=== PATIENT | male | born 1975 | race Native Hawaiian/Other Pacific Islander ===

== ENCOUNTER 2016-10-07 08:50 | Inpatient (IN) | payer MEDICARE ==
[~2016-10-07] VITALS: Ht 177.8 cm; Wt 132.4 kg
[2016-10-07] VITALS (17 sets, daily range): BP systolic 107–172; BP diastolic 55–106; PULSE 60–89; RESP 16–20; O2SAT 95–99
[~2016-10-07 08:50] MED LIST: ALLO300T2 PO; ASPI-973 PO; ATOR20TA65 PO; COLC0.6C3 PO; FENO48TA4 PO; GLIM1TAB PO; HYDR-3740 PO; INDO50CA PO; METF-496 PO; METO25TA99 PO; OMEP20CA11 PO; PROB500T8 PO
--- NOTE | 2016-10-07 09:00 | ED.REPORT ---
HPI-General Illness Date of Service Oct 07, 2016 ED Provider: Danny Espinosa DO 40 y/o male with a hx of HTN,DM, gout and anxiety presents to the ED complaining of left sided chest pain that radiates down his left arm, onset just prior to arrival. The pt was at his stress test appointment when the pain came on so he left for the ED before the test. He experienced the same pain yesterday when he was smoking, which resolved after he took 1 Nitro. He states the pain has been going on for about 2 months. Associated sx include SOB. His sx are exacerbated with exertion. Currently, he rates the pain 7/10 in severity. The pt had a Pharmacologic stress test on 01/18/16, which was found normal. Nursing Notes Stated Complaint: CHEST PAIN Chief Complaint: Chest Pain Nursing Notes Reviewed: Yes Allergies: Coded Allergies: No Known Allergies (Verified Allergy, Unknown, 01/26/15) Scheduled Allopurinol (Allopurinol) 300 Mg Tablet 300 MG PO DAILY Aspirin (Aspirin) 81 Mg Tablet 81 MG PO DAILY Atorvastatin Calcium (Atorvastatin Calcium) 20 Mg Tablet 20 MG PO DAILY Fenofibrate Nanocrystallized (Fenofibrate) 48 Mg Tablet 48 MG PO DAILY Glimepiride (Glimepiride) 1 Mg Tablet 1 MG PO DAILYAC Indomethacin (Indomethacin) 50 Mg Capsule 50 MG PO TID Metformin ER (Metformin ER) 1,000 Mg Tablet 1,000 MG PO DAILY Metoprolol Succinate ER (Metoprolol Succinate ER) 25 Mg Tab.er.24h 25 MG PO DAILY Miscellaneous Medications Colchicine (Colchicine) 0.6 Mg Capsule 0.6 MG PO Probenecid (Probenecid) 500 Mg Tablet 500 MG PO General Time Seen by MD: 08:59 Chief Complaint Chest pain Hx Obtained From: Patient Arrived By: Walk-in Sudden in Onset?: Yes Onset Occurred: Just prior to arrival Location: : Chest Quality: Painful Radiation: : Arm left Severity: Current: Pain level 7 out of 10 Severity: Maximum: Severe Recent Healthcare: No recent doctor visit Similar Sx Previous: Yes Past Medical History Past Medical History Notes: 01/18/16 Stress NM IMPRESSION: 1. Probably normal myocardial perfusion images. There is a small, mild, reversible perfusion defect in the inferior apex, which is nearly resolved on prone imaging, suggesting attenuation artifact. A small, very mild ischemia, however, cannot be entirely excluded. Recommend clinical correlation. 2. Normal left ventricular volume and systolic function. 3. The patient had chest pressure during Lexiscan infusion, which gradually revolved with Aminophyllin. No diagnostic EKG changes for ischemia. 01/20/15 Stress NM IMPRESSION: 1. Probable abnormal myocardial perfusion study. 2. Inferior and apical perfusion defects that improve with resting are consistent with ischemia. However, I cannot exclude that these are not secondary to diaphragmatic attenuation artifact given patient's body habitus. 3. Normal ejection fraction and normal LV wall motion. 4. Nondiagnostic pharmacological stress EKG. 5. Consider cardiology consultation to further evaluate if coronary angiogram is needed. Past Medical History Gout Arthritis Reports: Diabetes mellitus, Hyperlipidemia, Hypertension Past Surgical History none reported Family History Parents had MIs in their 60s and 70s Smoking History Current Every Day Smoker Social History Drug Use: Denies drug use Other Social History: Good social support Ambulatory Status Independent Review of Systems Full Review of Systems Respiratory: Reports: Shortness of breath Cardiovascular: Reports: Chest pain Musculoskeletal: Reports: Extremity pain (left arm) Complete sys rev & neg: except as marked. Physical Exam Vital Signs Vital Signs Date Time Temp Pulse Resp B/P Pulse Ox O2 Delivery O2 Flow Rate FiO2 10/07/16 11:23 36.4 78 18 123/66 95 Room Air 10/07/16 11:08 78 18 123/66 95 Room Air 10/07/16 09:27 85 20 121/55 95 Room Air 10/07/16 08:52 38.5 77 18 172/106 97 Initial VS: Reviewed Head / Eyes: Atraumatic, Normocephalic Neck: Full range of motion Abdomen / GI: Soft, Non-tender Extremities: Vascular intact, Neuro intact, No swelling, No tenderness Skin: Warm, Dry, No cyanosis Neurologic: Alert, Oriented, Nonfocal General/Constitutional: Awake, Alert, Cooperative Distress / Hydration: Positive: Distress mild Appearance / Presentation: Positive: Obese Respiratory / Chest: Atraumatic, Breath sounds NL, No respiratory distress, No wheezing Cardiovascular: Heart rate NL, Regular rhythm, Peripheral circulation NL Interpretation & Diagnostics Lab Results Interpretation Result Diagram: 10/07/16 0913 10/07/16 0913 Test 10/07/16 09:13 White Blood Count 8.6th/mm3 (3.8-10.1) Red Blood Count 5.75mil/mm3 (4.40-5.80) Hemoglobin 16.1g/dL (13.8-17.2) Hematocrit 48.5% (41.0-50.0) Mean Corpuscular Volume 84.3fL (81-100) Mean Corpuscular Hemoglobin 28.0pg (27.0-35.0) Mean Corpuscular Hemoglobin Concent 33.2% (32.0-37.0) Red Cell Distribution Width 14.3% (12.3-15.4) Platelet Count 299bil/L (150-400) Neutrophils (%) (Auto) 49.6% (40-74) Lymphocytes (%) (Auto) 40.7% (14-46) Monocytes (%) (Auto) 5.9% (4-12) Eosinophils (%) (Auto) 2.9% (0-5) Basophils (%) (Auto) 0.7% (0-3) Prothrombin Time 10.0sec (8.1-12.5) Prothromb Time International Ratio 0.94ratio Activated Partial Thromboplast Time 27.4sec (22.8-33.0) Sodium Level 137mEq/L (134-144) Potassium Level 4.2mEq/L (3.5-5.2) Chloride Level 99mEq/L (97-108) Carbon Dioxide Level 21mmol/L (18-29) Blood Urea Nitrogen 18mg/dL (6-20) Creatinine 1.03mg/dL (0.76-1.27) Estimat Glomerular Filtration Rate 86mL/min (>59) Glucose Level 194mg/dL (60-99) Calcium Level 10.0mg/dL (8.5-10.1) Magnesium Level 1.5mg/dL (1.6-2.6) Total Bilirubin 0.3mg/dL (0.0-1.2) Aspartate Amino Transf (AST/SGOT) 34U/L (0-50) Alanine Aminotransferase (ALT/SGPT) 58U/L (0-44) Alkaline Phosphatase 58U/L (25-150) Troponin T 0.020ug/L (0.0-0.011) Total Protein 7.9g/dL (6.4-8.4) Albumin 3.9g/dL (3.4-5.0) ECG Interpretation ECG Interpretation: Normal sinus rhtyhm. Rate 88. Old inferior infarct. Time: 09:12 Interpreted by: ED physician Normal ECG Interpretation: No change from prior ECGs (01/17/16) X-Ray Chest Interpretation Chest Xray Interpretation: IMPRESSION: Stable chest. No acute cardiopulmonary process is evident. Dictated by: Jj Mireles M.D. on 10/07/2016 at 8:55 Approved by: Jj Mireles M.D. on 10/07/2016 at 8:56 View: Portable, 1 view Interpretation / Wet Read by: Interpret - Radiologist Re-Eval/Medical Decision Med Decision/Clinical Course Non-STEMI with chest pain relieved by nitroglycerin elevated troponin, patient will be heparinized and will plan for the patient to go the cardiology to the Chief Sales Officer. Source of Hx: Old records Time of Eval: 09:30 Patient Status: Condition resolved Re-Evaluation/Progress Note: The pt reports no pain to the nurse after administration of 2 Nitroglycerin. Time of Eval: 09:50 Patient Status: Condition resolved Re-Evaluation/Progress Note: Rechecked pt. Discussed ECG. All questions answered. Time of Eval: 10:23 Patient Status: Condition improved Re-Evaluation/Progress Note: Rechecked pt. Discussed labs and informed the pt cardiology will be consulted. Pt understands. All questions answered. Time of Eval: 11:17 Patient Status: Condition improved Re-Evaluation/Progress Note: Rechecked. pt. Discussed lab results, imaging results and plan to admit. Pt understands and agrees with the plan for admission. All questions addressed. Consultation #1: Referral / Consult Name: Manpreet Parker MD Consulted With: Cardiology Call Returned at: 11:05 Solution Professional: Will see patient, Agrees with eval, Agrees with plan Note: Dr. Parker plans to the a cardiac cathterization this afternoon Consultation #2: Referral / Consult Name: Vick Fowler MD Consulted With: Hospitalist Call Returned at: 11:32 Solution Professional: Will see patient, Agrees with eval, Agrees with plan, Accepts admit Counseled Regarding: Diagnosis, Lab results, Need for admission Discharge & Departure Primary Impression: NSTEMI (non-ST elevated myocardial infarction) Disposition: ADMITTED TO HOSPITAL Discharge Condition All VS Reviewed: Yes Condition: Stable Referrals: Riley Cabral (PCP) Crit Care Except Billable Proc Time Spent: 30-74 minutes Services Performed: Patient management by me, Time spent at bedside, Reviewing test results Critical Care Notes: See MDM Scribe Attestation Portions of this note were transcribed by Antonio Pope. I, , personally performed the history, physical exam and medical decision-making;I reviewed and confirmed the accuracy of the information in the transcribed note. Signed by Emerald Naranjo. 10/07/16 12:13 copies to: Riley Cabral Timothy S DO Oct 07, 2016 09:00 Antonio Pope Oct 07, 2016 09:08
[2016-10-07] MEDS ORDERED: Nitroglycerin 2% 1 Gm Ointment TOPICAL ONE ×2 (09:10→17:05)
[2016-10-07] MEDS ORDERED: Ondansetron 2 mg/mL 2 mL Inj IVPUSH PRN ×3 (09:10→18:15)
[2016-10-07 09:24] LABS: BASOPHILS % (AUTO) 0.7 % (0-3); EOSINOPHILS % (AUTO) 2.9 % (0-5); MONOCYTES % (AUTO) 5.9 % (4-12); Mean Corpuscular Volume 84.3 fL (81-100); NEUTROPHILS % (AUTO) 49.6 % (40-74); Platelet Count 299 bil/L (150-400)
[2016-10-07 09:41] LABS: INR 0.94 ratio
[2016-10-07 09:50] LABS: TROPONIN T 0.02 ug/L (0.0-0.011)
--- NOTE | 2016-10-07 09:57 | DRSVH ---
PROCEDURE: X-RAY CHEST ONE VIEW, PORTABLE ([id number]) INDICATIONS: Chest pain. TECHNIQUE: One view of the chest was acquired. COMPARISON: [facility], CR, XR CHEST 1VW (PORTABLE), 01/17/2016, 9:36. FINDINGS: Surgical changes and devices: None. Lungs and pleura: No pleural effusions or pneumothorax. Lungs are clear. Mediastinum: Mediastinal contours appear normal. Heart size is normal. Bones and chest wall: No suspicious bony lesions. Overlying soft tissues appear unremarkable. IMPRESSION: Stable chest. No acute cardiopulmonary process is evident. Dictated by: Jj Mireles M.D. on 10/07/2016 at 8:55 Approved by: Jj Mireles M.D. on 10/07/2016 at 8:56
[2016-10-07 10:01] LABS: Magnesium 1.5 mg/dL (1.6-2.6)
[2016-10-07] MEDS ORDERED: Heparin 5,000 Unit/mL Inj IVPUSH ONE (10:20)
[2016-10-07] MEDS ORDERED: Heparin 25K Unit/500mL 0.45 NS 25,000 UNIT in IV Premix 1 EACH IV ONE (10:20)
[2016-10-07] MEDS ORDERED: Alum-Mag Hydrox-Simeth 30 mL Suspension PO PRN ×2 (11:55→18:15)
[2016-10-07] MEDS ORDERED: 0.9% Sodium Chloride 1,000 ML IV ONE (12:18)
--- NOTE | 2016-10-07 12:32 | PCM.CHPCAR ---
Consult Subjective Date of service Oct 07, 2016 Date of admit Oct 07, 2016 at 11:39 Provider Requesting Consult Requesting Provider: Danny Espinosa DO Primary Care Physician Primary Care Physician: Riley Cabral Chief Complaint Chest pain PMH Bedside Blood Glucose: 175 Scheduled Allopurinol (Allopurinol) 300 Mg Tablet 300 MG PO DAILY (Reported) Aspirin (Aspirin) 81 Mg Tablet 81 MG PO DAILY Atorvastatin Calcium (Atorvastatin Calcium) 20 Mg Tablet 20 MG PO DAILY ( Reported) Fenofibrate Nanocrystallized (Fenofibrate) 48 Mg Tablet 48 MG PO DAILY Glimepiride (Glimepiride) 1 Mg Tablet 1 MG PO DAILYAC (Reported) Indomethacin (Indomethacin) 50 Mg Capsule 50 MG PO TID (Reported) Metformin ER (Metformin ER) 1,000 Mg Tablet 1,000 MG PO DAILY (Reported) Metoprolol Succinate ER (Metoprolol Succinate ER) 25 Mg Tab.er.24h 25 MG PO DAILY (Reported) Miscellaneous Medications Colchicine (Colchicine) 0.6 Mg Capsule 0.6 MG PO (Reported) Probenecid (Probenecid) 500 Mg Tablet 500 MG PO (Reported) Discontinued Medications Hydrocodone-Acetaminophen 10-325 mg (Hydrocodone-Acetaminophen 10-325 mg) 1 Each Tablet 1 TABLET PO Q6H PRN PRN For Pain (Reported) Omeprazole (Omeprazole) 20 Mg Capsule.dr 20 MG PO DAILY (Reported) Current Inpatient Medications Current Medications Morphine Sulfate 4 mg Q15MIN PRN IVPUSH; Start 10/07/16 at 09:10 Ondansetron HCl 4 mg Q15M PRN IVPUSH; Start 10/07/16 at 09:10 Nitroglycerin 0.4 mg Q5MIN PRN SL Last administered on 10/07/16t 09:30; Admin Dose 0.4 MG; Start 10/07/16 at 09:30 Al Hydrox/Mg Hydrox/Simethicone 30 ml Q6 PRN PO; Start 10/07/16 at 11:55 Ondansetron HCl Dose range: 4 mg to 8 mg Q4H PRN IVPUSH; Start 10/07/16 at 11:55 Acetaminophen 975 mg Q6H PRN PO; Start 10/07/16 at 11:55 Lorazepam 1 mg ONCE PRN IVPUSH; Start 10/07/16 at 12:20; Stop 10/08/16 at 12:21 ; Status UNV Nitroglycerin 0.4 mg PRN PRN SL; Start 10/07/16 at 12:20; Status UNV Sodium Chloride 10 ml ENRRIQUE IVFLUSH; Start 10/07/16 at 16:30; Status UNV Allergies: Coded Allergies: No Known Allergies (Verified Allergy, Unknown, 01/26/15) Social History Hx Alcohol Use: NoHx Substance Use: No Smoking Status: Current Every Day Smoker Exam Vital Signs Vital Sign - Last Date Time Temp Pulse Resp B/P Pulse Ox O2 Delivery O2 Flow Rate FiO2 10/07/16 12:12 60 10/07/16 12:10 36.4 18 124/68 97 Room Air Lab and Diagnostics Result Diagram: 10/07/1613 10/07/16 0913 Manpreet Parker MD Oct 07, 2016 12:32
[2016-10-07] MEDS ORDERED: Heparin 1,000 Units/500 mL NS Premix IV ONE (12:34)
[2016-10-07] MEDS ORDERED: Heparin 10,000 Unit/1,000 mL NS Premix IV ONE (12:34)
--- NOTE | 2016-10-07 12:37 | PCM.CHPCAR ---
Consult Subjective Date of service Oct 07, 2016 Date of admit Oct 07, 2016 at 11:39 Provider Requesting Consult Requesting Provider: Danny Espinosa DO Primary Care Physician Primary Care Physician: Riley Cabral Chief Complaint Chest pain History of Present Illness This is a 40-year-old [place] who presents to the cardiovascular stress lab with chest pain. The patient was scheduled for a Lexiscan myocardial perfusion study early this morning but we may complaints of chest discomfort to our PA patient was sent to the emergency room for more emergent workup. The patient has had an extensive history of chest pain over the past several years. He has had to prior myocardial studies which were equivocal at best. He has had a previous echocardiogram on January 2015 which showed normal LV ejection fraction without any focal wall motion abnormalities. She was recently seen by one of her armored car guard on October 05 with chest pain with radiation to his left arm. Patient states that occasional massage and topical pain reliever would help but not always. He was prescribed nitroglycerin during that visit and he has used multiple occasions with relief. Was actually offered during his cardiology visit the heart catheterization but he declined and wanted to proceed with a repeat myocardial perfusion study. Patient has history of gout affecting his ankles and he was scheduled for Lexiscan sestamibi. Patient has multiple risk factors such as obesity, hypertension, hyperlipidemia, diabetes mellitus, family history of coronary disease, and history of smoking. The patient chronically uses crutches because of his gout. Patient is on beta blockers, statins, aspirin, or hypoglycemic medications for his diabetes. His EKG in the emergency room did not reveal any acute ST-T changes. Review of Systems Review of Systems CONSTITUTIONAL: Negative for fever, weight loss or weight gain. HEENT: Eyes: Negative for glaucoma or cataracts. Ears: Negative pain or loss of hearing. Nose: Negative for nasal congestion. Negative for rhinorrhea or postnasal drip. Mouth: Negative for false teeth. Throat: Negative for masses or hoarseness. Positive for snoring. CARDIOVASCULAR: Positive for chest pain but negative for palpitations, near syncope, syncope, PND, or orthopnea. RESPIRATORY: Negative for shortness of breath, hemoptysis, COPD, cough. GASTROINTESTINAL: Negative for nausea, vomiting, diarrhea or heartburn. GENITOURINARY: Negative for dysuria. MUSCULOSKELETAL: Positive for osteoarthritis and gout SKIN: Negative for rashes. NEUROLOGIC: Negative for headaches, blurry vision, CVA, mental status changes. PSYCHIATRIC: Negative for depression. Negative for daytime sleepiness or insomnia. ENDOCRINE: Positive for diabetes but negative for thyroid abnormalities. HEMATOLOGIC: Negative for anemia or blood dyscrasias. PMH Past Medical History Diabetes Hyperlipidemia Obesity Obstructive sleep apnea History of smoking Osteoarthritis Gout GERD Family history of coronary artery disease Bedside Blood Glucose: 175 Scheduled Allopurinol (Allopurinol) 300 Mg Tablet 300 MG PO DAILY (Reported) Aspirin (Aspirin) 81 Mg Tablet 81 MG PO DAILY Atorvastatin Calcium (Atorvastatin Calcium) 20 Mg Tablet 20 MG PO DAILY ( Reported) Fenofibrate Nanocrystallized (Fenofibrate) 48 Mg Tablet 48 MG PO DAILY Glimepiride (Glimepiride) 1 Mg Tablet 1 MG PO DAILYAC (Reported) Indomethacin (Indomethacin) 50 Mg Capsule 50 MG PO TID (Reported) Metformin ER (Metformin ER) 1,000 Mg Tablet 1,000 MG PO DAILY (Reported) Metoprolol Succinate ER (Metoprolol Succinate ER) 25 Mg Tab.er.24h 25 MG PO DAILY (Reported) Miscellaneous Medications Colchicine (Colchicine) 0.6 Mg Capsule 0.6 MG PO (Reported) Probenecid (Probenecid) 500 Mg Tablet 500 MG PO (Reported) Discontinued Medications Hydrocodone-Acetaminophen 10-325 mg (Hydrocodone-Acetaminophen 10-325 mg) 1 Each Tablet 1 TABLET PO Q6H PRN PRN For Pain (Reported) Omeprazole (Omeprazole) 20 Mg Capsule.dr 20 MG PO DAILY (Reported) Current Inpatient Medications Current Medications Morphine Sulfate 4 mg Q15MIN PRN IVPUSH; Start 10/07/16 at 09:10 Ondansetron HCl 4 mg Q15M PRN IVPUSH; Start 10/07/16 at 09:10 Nitroglycerin 0.4 mg Q5MIN PRN SL Last administered on 10/07/16t 09:30; Admin Dose 0.4 MG; Start 10/07/16 at 09:30 Al Hydrox/Mg Hydrox/Simethicone 30 ml Q6 PRN PO; Start 10/07/16 at 11:55 Ondansetron HCl Dose range: 4 mg to 8 mg Q4H PRN IVPUSH; Start 10/07/16 at 11:55 Acetaminophen 975 mg Q6H PRN PO; Start 10/07/16 at 11:55 Lorazepam 1 mg ONCE PRN IVPUSH; Start 10/07/16 at 12:20; Stop 10/08/16 at 12:21 ; Status UNV Nitroglycerin 0.4 mg PRN PRN SL; Start 10/07/16 at 12:20; Status UNV Sodium Chloride 10 ml ENRRIQUE IVFLUSH; Start 10/07/16 at 16:30; Status UNV Allergies: Coded Allergies: No Known Allergies (Verified Allergy, Unknown, 01/26/15) Family History Family History Multiple family members with history of coronary disease but not premature Social History Hx Alcohol Use: NoHx Substance Use: No Smoking Status: Current Every Day Smoker Exam Vital Signs Vital Sign - Last Date Time Temp Pulse Resp B/P Pulse Ox O2 Delivery O2 Flow Rate FiO2 10/07/16 12:12 60 10/07/16 12:10 36.4 18 124/68 97 Room Air Objective GENERAL: Well-appearing, well-nourished and in no acute distress. HEAD: Atraumatic, normocephalic. EYES: Pupils equal round and reactive to light, extraocular movements intact, sclera anicteric, conjunctiva are normal. ENT: TMs normal, nares patent, oropharynx clear without exudates. Moist mucous membranes. NECK: Normal range of motion, supple without lymphadenopathy or JVD. LUNGS: Breath sounds clear to auscultation bilaterally and equal. No wheezes rales or rhonchi. HEART: Regular rate and rhythm without murmurs, rubs or gallops. ABDOMEN: Obese. Soft, nontender, normoactive bowel sounds. No guarding, no rebound. No masses appreciated. EXTREMITIES: Limited range of motion of ankle, no pitting or edema. No clubbing or cyanosis. NEUROLOGICAL: Cranial nerves II through XII grossly intact. Normal speech, normal gait. PSYCH: Normal mood, normal affect. SKIN: Warm, Dry, normal turgor, no rashes or lesions noted. Multiple tattoos noted Lab and Diagnostics Labs CBC Test 10/07/16 09:13 White Blood Count 8.6th/mm3 (3.8-10.1) Red Blood Count 5.75mil/mm3 (4.40-5.80) Hemoglobin 16.1g/dL (13.8-17.2) Hematocrit 48.5% (41.0-50.0) Mean Corpuscular Volume 84.3fL (81-100) Mean Corpuscular Hemoglobin 28.0pg (27.0-35.0) Mean Corpuscular Hemoglobin Concent 33.2% (32.0-37.0) Red Cell Distribution Width 14.3% (12.3-15.4) Platelet Count 299bil/L (150-400) Neutrophils (%) (Auto) 49.6% (40-74) Lymphocytes (%) (Auto) 40.7% (14-46) Monocytes (%) (Auto) 5.9% (4-12) Eosinophils (%) (Auto) 2.9% (0-5) Basophils (%) (Auto) 0.7% (0-3) CMP Test 10/07/16 09:13 Sodium Level 137mEq/L Potassium Level 4.2mEq/L Chloride Level 99mEq/L Carbon Dioxide Level 21mmol/L Blood Urea Nitrogen 18mg/dL Creatinine 1.03mg/dL Estimat Glomerular Filtration Rate 86mL/min Glucose Level 194mg/dL Calcium Level 10.0mg/dL Magnesium Level 1.5mg/dL Total Bilirubin 0.3mg/dL Aspartate Amino Transf (AST/SGOT) 34U/L Alanine Aminotransferase (ALT/SGPT) 58U/L Alkaline Phosphatase 58U/L Troponin T 0.020ug/L Total Protein 7.9g/dL Albumin 3.9g/dL Result Diagram: 10/07/1691210/07/16912 Assessment & Plan Problems: (1) NSTEMI (non-ST elevated myocardial infarction) Plan: This is a young gentleman with plethora of cardiovascular risk factors who comes in with recurrent chest pain which is atypical. However given the fact that he has had multiple myocardial perfusion studies which have been equivocal as result of his morbid obesity a think we need a more definite assessment of his coronary anatomy. At this point the patient is more opening to proceeding with a cardiac catheterization. We discussed about the risk and benefits of the procedure the patient is willing to proceed with coronary angiograms later this afternoon. We will attempt to go through the right radial artery and if negative the patient might be a medical home later this afternoon. Also consider an echocardiogram to rule out any other potential causes for his chest pain. The patient will need to hold his metformin for at least 2 days after his heart catheterization to decrease chances of contrast- induced nephropathy. For now continue with his home medications. Patient's concern about eating since he has been nothing by mouth since last night for his Katelin valdeztamibi. I did inform him that he should be able to eat soon after his procedure if we proceed with a right radial approach. Status: Acute ICD Code: I21.4 (2) Hyperlipemia, mixed Status: Chronic ICD Code: E78.2 (3) Obesities, morbid Status: Chronic ICD Code: E66.01 (4) Diabetes Qualifiers: Diabetes mellitus type: type 2 Status: Acute ICD Code: E11.9 (5) HTN (hypertension) Status: Acute ICD Code: I10 (6) Family history of coronary artery disease ICD Code: Z82.49 (7) Smoking Status: Acute ICD Code: F17.200 Time spent 80 minutes Manpreet Parker MD Oct 07, 2016 12:37
--- NOTE | 2016-10-07 13:15 | NUR ---
Admit Pt admitted to [facility] room 2030 from the emergency department. Report was received from Kathie BOSTON. Pt was transported via gurney and transferred to hospital bed with minimal assist. Pt is alert and oriented, at baseline is independent. Currently he is on bedrest and is NPO. Pt is scheduled for analytical lab analyst procedure at 1400. Per MD orders, Heparin drip has been dc'd and NS fluids have been initiated at 100mls/hr.
[2016-10-07] MEDS ORDERED: Nitroglycerin 50,000 mcg/250 mL D5W Premix IV ONE (13:52)
[2016-10-07] MEDS ORDERED: fentaNYL-PF 50 mCg/mL 2 mL Inj ONE (13:52)
[2016-10-07] MEDS ORDERED: Heparin 1,000 Unit/mL 10 mL Inj ONE (13:53)
[2016-10-07] MEDS ORDERED: Verapamil 2.5 mg/mL 2 mL Inj ONE (13:53)
--- NOTE | 2016-10-07 14:13 | NUR ---
Pt off unit to Personal Protection Specialist Pt transported in bed to dairy lab technician for procedure. Safe patient handoff report given to Michael BOSTON. Pt's belongings were all gathered and transported with pt.
[2016-10-07] MEDS ORDERED: Heparin 25K Unit/500mL 0.45 NS 25,000 UNIT in IV Premix 1 EACH IV SCH (17:05)
[2016-10-07] MEDS ORDERED: Heparin Protocol Boluses IVPUSH PRN (17:05)
[2016-10-07] MEDS: Sodium Chloride LOK Flush 10 mL Syringe IVFLUSH SCH (18:08)
[2016-10-07] MEDS ORDERED: Heparin Initial Bolus IVPUSH ONE (18:15)
[2016-10-07] MEDS ORDERED: Atropine 1 mg/10 mL (Code) Syringe IVPUSH PRN (18:15)
[2016-10-07] MEDS ORDERED: Polyethylene Glycol (PEG) 17 Gm Powder PO PRN (18:15)
[2016-10-07] MEDS ORDERED: Senna-Docusate 8.6-50 mg Tablet PO PRN (18:15)
[2016-10-07] MEDS ORDERED: Glucose 40% Oral Gel 15 Gm Tube PO PRN (18:15)
[2016-10-07] MEDS ORDERED: Magnesium Sulf 2 Gm/50mL Water 2 GM in IV Premix 1 EACH IV ONE (18:25)
--- NOTE | 2016-10-07 18:25 | NUR ---
Pt transfer from [facility]/Pension Manager Pt transferred back from [facility]. Safe patient handoff received from Mario BOSTON. Pt A&O, telemetry reinitiated and tech notified. Pt had radial approach in catheter builder, site covered in band aid, small hematoma proximal to site. Hematoma outlined in sharpie, pt understands and agrees to not using his right hand at this time. Heparin drip to be restarted at 1900 per cardiac protocol at starting rate of 18u/kg/hr, with 5000 unit bolus. Orders clarified over telephone with Dr Parker, and relayed to pharmacist Johnathon.
--- NOTE | 2016-10-07 18:35 | PCM.HPMED ---
Subjective Date of Service Oct 07, 2016 Primary Provider: Admitting Physician: Vick Fowler MD Primary Care Physician: Riley Cabral Attending Physician: Vick Fowler MD Admit Status: From the Emergency Department, Full Admit, [facility] Telemetry Chief Complaint: Chest pain History of Present Illness: This is a 40-year-old male with a history of hypertension and diabetes mellitus 2. He has had 2 months of stuttering chest pain. This is been increasing recently. This is described as a left chest ache with associated diaphoresis and shortness of breath. He has also had some sweatiness. The pain is intermittently radiated to left arm. He was seen and no patient cardiology 2 days ago and given nitroglycerin which she used yesterday and this did help the pain to schedule for a stress test today and announced he was having chest pain before was sent to the ER. There is a negative troponin and nonacute 12-lead and was taken to the catheterization lab and found to have multiple critical stenoses in his coronary arteries. The patient is now on heparin after being brought up to the floor and was planned to have a PCI tomorrow. He denies recent cough. No rhinorrhea. His pain is again left chest radiating to left arm intermittently. It is increased by getting angry or exertion. In decreases with rest or nitroglycerin. Review of Systems: No constipation or hematuria. No urinary retention. All systems reviewed and otherwise negative except as noted in history of present illness Allergies Coded Allergies: No Known Allergies (Verified Allergy, Unknown, 01/26/15) Home Medications Metformin 1000 mg twice a day Metoprolol 25 mg twice a day Atorvastatin 40 mg daily PMH Diabetes mellitus to Obesity Hypertension Hyperlipidemia Surgical History None Family History CAD and diabetes Social History Hx Alcohol Use: No Hx Substance Use: No Hx Tobacco Use: Yes Smoking Status: Current Every Day Smoker Living Arrangement: with Family Exam Vital Signs Vital Sign - Last Date Time Temp Pulse Resp B/P Pulse Ox O2 Delivery O2 Flow Rate FiO2 10/07/16 17:00 79 16 122/64 95 Room Air 10/07/16 12:10 36.4 Exam Oriented 3. No distress. Fluent speech. Normal affect. Normal skull. Normal nose and ears. Anicteric sclera, symmetric pupils Oropharynx is unremarkable, no facial droop. Neck is supple, normal thyroid. No adenopathy. Lungs are clear, normal effort rate. Heart is regular without murmur gallop or rub. Abdomen soft, nondistended or tender. Extremities are free of pedal edema. Good radial and pedal pulses. Skin is free of rash, lesions. No petechiae or ecchymosis. Joints are grossly normal. Cranial nerves are grossly normal. Motor strength is normal in all extremities. Normal muscular tone. Patient is multiple tattoos over her arms a large tattoo over his right chest and arm. Lab and Diagnostics Result Diagram: 10/07/1691210/07/16912 X-Rays, CTs and MRIs Chest x-ray is unremarkable 12-lead ECG Normal sinus rhythm with no acute ST segment changes. Inferior Q waves are noted. Assessment & Plan 1. Unstable angina, POA. The plan is to continue heparin and dual antiplatelet agents as well as beta blockade and atorvastatin tonight. The patient will undergo PCI tomorrow. 2. Diabetes mellitus 2, POA. We will hold metformin and use correctional lispro with 5 units of at bedtime glargine tonight. 3. Essential hypertension, POA. Metoprolol 50 twice a day 4. Tobacco dependence, POA. NicoDerm 21 mg transdermal. Patient is full resuscitation He is admitted inpatient status with estimated date of tonight's. Pain Evaluation: Adequate Pain Control Resuscitation Status: CPR: Attempt Resuscitation Time spent 45 minutes Vick Fowler MD Oct 07, 2016 18:34
[2016-10-07] MEDS: HYDROcodone-APAP 5-325 mg Tablet PO PRN ×2 (18:38→22:31)
--- NOTE | 2016-10-07 18:59 | PCM.CVCATH ---
Cardiac Cath Report Date of Service Oct 07, 2016 Primary Indication This is a young gentleman with no prior history of coronary disease. Patient has significant risk factors for coronary artery disease. He presents with chest pain and mildly elevated troponin. Procedure 1. Left heart catheterization 2. Left ventricular angiogram 3. Selective coronary angiogram Vascular Access Right radial artery Procedure Details The patient was brought to the cardiac catheterization lab in the fasting state. Patient was laid supine on the cardiac catheterization table and the right forearm was prepped and draped in the usual sterile fashion. One percent Xylocaine was infiltrated over the right radial artery. Vascular access was then achieved under ultrasound guidance. Guide wire was used to advance the catheter through the sheath and up into aortic sinuses. After coronary angiography, left heart catheterization and left ventricular angiogram were completed, guide wire was advanced through the catheter ahead of the tip of the catheter and the guide wire along with the catheter were pulled together out of the sheath. A TR band was used for hemostasis. There were no immediate complications. Findings 1. Hemodynamics: The left ventricular systolic pressure was estimated at 127 mmHg and the left ventricular end-diastolic pressure was estimated at 20 mmHg. There is no significant gradient during pullback. The aortic systemic pressure was 127/83 mmHg. 2. Selective coronary angiography: A. Left main: There artery has no evidence of significant disease. It bifurcates into the left anterior descending and left circumflex arteries. B. Left anterior descending artery: The proximal LAD has a 100% occlusion. However the mid and distal portion of the LAD is seen via left to left collaterals and right to left collaterals mentioned below. It appears that the mid and distal portion of the LAD has diffuse disease but otherwise it does have pretty good coronary flow. There are multiple diagonal arteries but are not very well seen. C. Left circumflex artery: The left circumflex artery is a large size vessel but nondominant. In the midportion of the left circumflex artery there is a 50 % stenosis. There is a marginal branch artery off the same portion of the left circumflex which it has a 70-90% ostial stenosis. This marginal artery is a small size vessel. The left circumflex appears to give some collaterals to the distal portion of the posterior lateral branch artery of the RCA. D. Right coronary artery: There is a 80-90% stenosis in the proximal portion. In the midportion there is a 99% stenosis. The ostial portion of the posterior lateral branch artery has a 90-95% stenosis. The RCA is a dominant artery. The RCA gives multiple collaterals to the LAD. 3. Left ventricular angiogram: The ejection fraction is around 55-60 %. There might be some subtle hypokinesis along the apical inferior wall. Summary 1. Severe multivessel coronary artery disease. 2. 100% occlusion of the proximal LAD with left to left and right to left collaterals. 3. 50% stenosis in the mid body of the left circumflex artery. 4. Moderate to severe proximal RCA stenosis and critical mid RCA stenosis. 5. Preserved LV ejection fraction with subtle hypokinesis along the distal inferior/apical inferior wall. Recommendations The case was discussed with her primary microwave oven assembler, Dr. Smith, who discussed the findings with the patient and have agreed to proceed with coronary intervention percutaneously rather than coronary artery bypass grafting. The patient has severe knee arthritis bilaterally as well as gout in his ankle. He has significant diabetes and given these morbidities the patient will have increased complications postoperatively. The patient will be restarted on intravenous heparin and loaded on Plavix tonight. Dr. Smith will attempt PCI tomorrow am. Manpreet Parker MD Oct 07, 2016 18:59
[2016-10-07 19:49] LABS: Magnesium 1.6 mg/dL (1.6-2.6)
--- NOTE | 2016-10-07 19:52 | NUR ---
[facility] signed
[2016-10-07] MEDS: 0.9% Sodium Chloride 1,000 ML IV SCH (20:03)
[2016-10-07] MEDS: Insulin LISPRO 300 Unit/3 mL Inj SUBQ SCH (21:01)
[2016-10-07] MEDS: Insulin GLARgine 100 Unit/mL Syringe SUBQ SCH (21:01)
--- NOTE | 2016-10-07 21:24 | NUR ---
order clarification heparin 5000 [address] clarified [address] Parker. okay to given heparin 5000unit bolus per Dr Parker. heparin gtt started as per cardiac protocol (as documented) at 1000 units /per hour. protocol double checked by Edenilson mcfarlane rn. next ptt at 0200. care ongoing.
--- NOTE | 2016-10-07 23:08 | NUR ---
troponin per dr Carlson, please have midnight troponin drawn now. called lab, slab grinder will come now. Addendum: 10/08/16 at 0248 by JONATHON ESCOBAR RN notified Dr carlson of above troponin value. see critical results charting.
[2016-10-08] VITALS (10 sets, daily range): BP systolic 103–155; BP diastolic 64–101; PULSE 60–87; RESP 14–20; O2SAT 96–99
[2016-10-08 00:06] LABS: TROPONIN T 0.258 ug/L (0.0-0.011)
[2016-10-08] MEDS: Sodium Chloride LOK Flush 10 mL Syringe IVFLUSH SCH ×6 (00:30→23:39)
[2016-10-08 02:21] LABS: BASOPHILS % (AUTO) 0.5 % (0-3); EOSINOPHILS % (AUTO) 2.5 % (0-5); MONOCYTES % (AUTO) 7.6 % (4-12); Mean Corpuscular Hemoglobin 28.2 pg (27.0-35.0); Mean Corpuscular Volume 85.1 fL (81-100); NEUTROPHILS % (AUTO) 48.8 % (40-74); Platelet Count 265 bil/L (150-400)
--- NOTE | 2016-10-08 05:07 | NUR ---
heparin stopped heparin stopped as per cardi cath protocol. Addendum: 10/08/16 at 0513 by JONATHON ESCOBAR RN as per report, cardiac cath planned for 899.
[2016-10-08] MEDS: 0.9% Sodium Chloride 1,000 ML IV SCH (06:42)
[2016-10-08] MEDS: Insulin LISPRO 300 Unit/3 mL Inj SUBQ SCH ×4 (07:32→21:01)
[2016-10-08] MEDS ORDERED: Heparin 1,000 Units/500 mL NS Premix IV ONE (08:22)
[2016-10-08] MEDS ORDERED: Heparin 10,000 Unit/1,000 mL NS Premix IV ONE ×2 (08:23→09:25)
[2016-10-08] MEDS ORDERED: Atropine 1 mg/10 mL (Code) Syringe ONE (08:23)
[2016-10-08] MEDS ORDERED: Heparin 1,000 Unit/mL 10 mL Inj ONE ×2 (08:23→09:07)
[2016-10-08] MEDS ORDERED: Phenylephrine/NS-PF 100 mCg/mL 5 mL Syringe IVPUSH ONE (08:23)
[2016-10-08] MEDS ORDERED: Verapamil 2.5 mg/mL 2 mL Inj ONE (08:50)
[2016-10-08] MEDS ORDERED: Nitroglycerin 50,000 mcg/250 mL D5W Premix IV ONE (08:50)
[2016-10-08] MEDS ORDERED: fentaNYL-PF 50 mCg/mL 2 mL Inj ONE ×2 (09:01→09:30)
[2016-10-08] MEDS ORDERED: 0.9% Sodium Chloride 1,000 ML ONE (10:30)
[2016-10-08] MEDS ORDERED: Ondansetron 2 mg/mL 2 mL Inj IVPUSH PRN (11:30)
[2016-10-08] MEDS ORDERED: 0.9% Sodium Chloride 250 ML BOLUS IV PRN (11:30)
[2016-10-08] MEDS ORDERED: 0.9% Sodium Chloride 800 ML IV ONE (11:30)
[2016-10-08] MEDS ORDERED: Sodium Chloride LOK Flush 10 mL Syringe IVFLUSH PRN (11:30)
[2016-10-08] MEDS ORDERED: Atropine 1 mg/10 mL (Code) Syringe IVPUSH PRN (11:30)
[2016-10-08] MEDS ORDERED: HYDROcodone-APAP 5-325 mg Tablet PO PRN (11:30)
--- NOTE | 2016-10-08 11:56 | PCM.PNMED ---
Subjective Date of Service Oct 08, 2016 Subjective He is doing well today. No chest pain or dyspnea. No nausea or arm pain. He underwent PCI of the RCA this morning. He is right wrist is doing well. He had a radial approach. No abdominal pain, nausea or diarrhea. No overnight events noted. Exam Vital Signs Vital Sign - Last Date Time Temp Pulse Resp B/P Pulse Ox O2 Delivery O2 Flow Rate FiO2 10/08/16 08:00 36.6 60 14 118/64 97 Room Air Intake and Output 10/07/16 10/07/16 10/08/16 Cumulative From/Thru 15:00 23:00 07:00 10/07/16 08:52 - 10/08/16 06:47 Intake Total 5 ml 480 ml 1710 ml 2195 ml Output Total 500 ml 1700 ml 2200 ml Balance 5 ml -20 ml 10 ml -5 ml Intake Oral 480 ml 900 ml 1380 ml IV Total 5 ml 810 ml 815 ml Output Urine Total 500 ml 1700 ml 2200 ml Exam Alert and oriented -3, no distress. Fluent speech Anicteric sclera. Lungs are clear with normal rate and effort Heart is regular without murmur gallop or rub Abdomen soft nontender, flat Extremities are free of edema. Skin is free of rash or lesions. IVs and Medications Medications Reviewed: Medications were reviewed in detail Lab and Diagnostics Result Diagram: 10/08/1620910/08/16 021 X-Rays, CTs and MRIs Chest x-ray is unremarkable 12-lead ECG Normal sinus rhythm with no acute ST segment changes. Inferior Q waves are noted. Assessment & Plan 1. Unstable angina, POA. Patient is doing well status post PCI of the RCA with daily as placed. We will continue dual antiplatelet therapy, beta- blockade and high-dose atorvastatin. He will be observed for another 24 hours. He also has an LAD stenosis with collateralization which will be intervened on at a later date. 2. Diabetes mellitus 2, POA stable and controlled. We will hold metformin and continue use of correctional lispro and at bedtime glargine, 5. 3. Essential hypertension, POA. Metoprolol 50 twice a day 4. Tobacco dependence, POA stable and controlled. NicoDerm 21 mg transdermal. Patient is full resuscitation He is admitted inpatient status with estimated date of tonight's. Possible discharge on October 09 Resuscitation Status: CPR: Attempt Resuscitation Vick Fowler MD Oct 08, 2016 11:56
--- NOTE | 2016-10-08 12:19 | CS94 ---
[address] [address] DIAGNOSTIC CARDIAC CATHETERIZATION PATIENT: DOUGLAS HEBERT : 1975 MR#: [id number] ADMIT: 10/07/2016 JOB ID: [id number] SERVICE DATE: 10/08/2016 PROCEDURES PERFORMED: 1. Intravascular ultrasound of the right coronary artery. 2. Percutaneous intervention with stent placement of the right coronary artery. 3. Limited left-sided angiography. INDICATIONS: A 40-year-old man admitted with chest pain, now with findings consistent with non-STEMI. He has an occluded and collateralized left anterior descending artery, but one of the vessels that is collateralizing this vessel is the right coronary artery which has evidence of serial high-grade stenoses. The patient presents for assessment and intervention. DESCRIPTION OF PROCEDURE: Informed consent was obtained. Patient was brought to the catheterization laboratory. Bilateral groins were prepped. However, the area of the right radial artery was prepped and draped in sterile fashion. The area over the right radial artery was anesthetized with lidocaine. Using an Angiocath double wall technique, access was obtained. A 6-Lao sheath was advanced. A cocktail of verapamil and nitroglycerin was administered prior to passing catheters. Next, a 6-Lao JR4 catheter was advanced over a wire and used to cannulate left coronary. Angiographic views obtained. This was exchanged out over exchange wire for a 6-Lao JR4 guide which was advanced into the right coronary. Heparin was given for anticoagulation. A Prowater wire was advanced across the area of stenosis into the PDA. A 2.5 x 12 mm balloon was advanced to the area of distal stenosis and inflated to nominal pressures. IVUS was then advanced to the vessel. The distal vessel appeared in the range of approximately 3.2 to 3.3 mm. As the vessel continued proximally, it got closer to 3.5. In the more proximal vessel where another stenosis was appreciated, it was about 4 mm in diameter. Next, a 3.25 mm balloon was advanced to the area of distal stenosis and inflated to nominal pressures. This appeared to be a reasonable size for the vessel. Initially, it would appear that the stent required would be around 18 mm. However, there was significant motion of the stent with respiration, often jumping proximal to the area of stenosis. Therefore, we had to use a longer stent, so a 3.25 x 28 mm Xience stent was advanced to the area of stenosis. This was prepped and draped and carefully positioned and inflated to nominal pressures. Subsequent to this, a 3.5 noncompliant balloon was advanced to the area of stenting and inflated to nominal pressures for post dilation. Next, attention was focused on the proximal stenosis. There was significant spasm appreciated. Therefore, nitroglycerin was given to better visualize the size of the vessel. A 3.5 x 12 mm balloon was advanced to the area of stenosis and inflated to nominal pressures. This was clearly too small. Ultimately, decisions were made for a placement of a 4 mm stent. Thus, a 4 x 28 mm stent was advanced to the area of stenosis. Carefully, we placed and ultimately deployed at nominal pressures. After removal of the delivery balloon, a 4 x 15 mm noncompliant balloon was advanced in the area of initial stenosis, and this was inflated to high atmospheres. Followup angiographic views after stenting and intracoronary nitroglycerin revealed an excellent angiographic result with no significant residual stenosis, no evidence of dissection, and brisk flow in the artery. The extension branch is occluded but is collateralized via left to right collaterals. He has ostial disease and, therefore, was not felt to be a good candidate for intervention at this time. After wires and guides were removed, the 6-Lao JL4 catheter was advanced to the left coronary artery. Limited angiographic views were obtained to visualize the left anterior descending artery in anticipation of possible intervention in the near future. This catheter was removed and the case was ended. The TR band was placed and hemostasis was achieved. There were no complications. FINDINGS: Right coronary artery: This vessel has evidence of serial stenoses. The first stenosis appears in the range of 75%. The distal stenosis is higher grade in the estimated range of 99%. There is KHRIS 2 flow distally. There is evidence of [id number] collateralization appreciated. As noted, the vessel was wired. It was pre-dilated and was assessed with IVUS. Ultimately, a 3.25 x 28 mm Xience stent was advanced in the mid conduit stenosis. This was post dilated with a 3.5 noncompliant balloon. Ultimately, a 4 x 28 mm Xience stent was placed to cover the proximal stenosis. This was post dilated with a 4 NC balloon. IVUS was also used to assess the vessel for sizing and degree of calcification, if present. An excellent angiographic result was obtained. Left main: This is a rather short vessel with noted obstructive disease. Circumflex artery: This vessel has evidence of a stenosis estimated in the range of 50% to 60% in the mid segment. There are some other small obtuse marginal branches appreciated. Left anterior descending artery: This is occluded in the early part of the mid segment. There vessel has some findings that may make it favorable for intervention in the future (to open up the occluded segment) HEMODYNAMICS: Aortic pressure in the range of 130 to 160. Heart rates in the 60s to 70s. MEDICATIONS GIVEN IN THE CASE: Include anesthesia, heparin to achieve therapeutic ACTs. Patient had already been given Plavix this morning. He was given a ReoPro bolus at the end of the case. IMPRESSION: 1. Evidence for serial high-grade stenoses of the right coronary artery treated with balloon dilation, assessed with intravascular ultrasound, and placement of drug-eluting stents. 2. Evidence for right to left collaterals filling the distal left anterior descending, as well as [id number] collaterals filling the distal left anterior descending. The left anterior descending artery is occluded in the early part of the mid segment. MTDD
--- NOTE | 2016-10-08 17:25 | NUR ---
From cathode ray tube assembler at 1100 s/p RCA stents. Right radial site with t-band X 2.5 hours, dressed with 2x2 gauze/CDI. Hematoma present from previous cath appears stable. Vicodin given with good effect for wrist discomfort. Large, supportive family at bedside supplying him with ample food products; noon-time bedside BG deferred due to non-fasting. Sinus rhythm on tele. IVFs post cath until 1900. Vital signs stable. Most likely will discharge home tomorrow.
[2016-10-08] MEDS: Insulin GLARgine 100 Unit/mL Syringe SUBQ SCH (21:01)
[2016-10-09 00:31] VITALS: BP 129/74; PULSE 73; RESP 16; O2SAT 94
[2016-10-09 03:22] VITALS: BP 128/69; PULSE 65; RESP 16; O2SAT 96
[2016-10-09 03:34] LABS: Mean Corpuscular Hemoglobin 27.9 pg (27.0-35.0); Mean Corpuscular Volume 84.2 fL (81-100)
--- NOTE | 2016-10-09 03:44 | NUR ---
BGs/Radial Site Pt's HS BG was 266. Pt was given 5 Units of Lantus and 3 Units of Lispro. Pt's radial site from the heart botany laboratory assistant procedure remains tender to the touch but is soft. Upon start of shift there was a drop of sanguinous drainage on the dry gauze dressing covering the insertion site. There has been no change and no further drainage from the insertion site. Pt's right hand is warm to the touch and pt reports having feeling in the hand. Pt's radial pulse is weak but present.
[2016-10-09 08:09] VITALS: BP 125/77; PULSE 73; RESP 16; O2SAT 97
[2016-10-09] MEDS: Insulin LISPRO 300 Unit/3 mL Inj SUBQ SCH (08:25)
[2016-10-09] MEDS: Sodium Chloride LOK Flush 10 mL Syringe IVFLUSH SCH (08:28)
[2016-10-09 09:17] VITALS: PULSE 78
--- NOTE | 2016-10-09 10:24 | PCM.DIMED ---
Discharge Instructions Date of Service Oct 09, 2016 Dates of Hospitalization Oct 07, 2016 at 11:39 Discharge Diagnosis Discharge Diagnosis 1. Unstable angina, resolved. 2. Diabetes mellitus 2. 3. Essential hypertension. 4. Tobacco dependence. Diet Discharge Diet: Heart Healthy, Diabetic Activity Discharge Activity: Limited until seen by PCP Call your provider Call your provider for: Shortness of breath, Chest pain Patient Instructions Follow-up Provider: Prisca Smith MD Follow-up with PCP in: 1 week Vick Fowler MD Oct 09, 2016 10:24
[2016-10-09] MEDS ORDERED: CLOP75TA28 PO (10:26)
--- NOTE | 2016-10-09 12:28 | NUR ---
Social Work Note: Initial Assessment/Discharge Data& Assessment: EMR reviewed. Per pt is medically ready to discharge home via POV. SW met with pt at bedside to confirm discharge plan and assess for any unmet needs, SW role explained. Geraldo Tam is a 40 year old male admitted on 10/07/2016 for NSTEMI. Per pt is medically improved and ready for discharge. Pt has Medicare insurance coverage and was previously seeing Riley Cabral MD for primary care. Pt explained that the MD office called him on Monday to establish a new PCP as Riley Cabral is no longer a provider in this community. Pt states he plans to call the office back tomorrow to have a new PCP assigned. Pt does not have LTC insurance or VA benefits. Pt does not have SNF or HH hx. Pt lives at home with his significant other and his children. Pt girlfriend will be transporting him home today. Pt is ambulating with crutches at baseline when he leaves the home. Pt provided with DPOA/Advance Directive paperwork to review and complete when possible. Pt denies any other needs. No other discharge needs identified. Plan: Per pt is medically ready to discharge home via POV. Pt denies any other needs. No other discharge needs identified. RUTH Neal Addendum: 10/09/16 at 1234 by CATHY GELLER Amended: Links added.
--- NOTE | 2016-10-09 12:32 | NUR ---
Discharge Pt discharged to home with transportation by his significant other POV. Pt's IV's were dc'd intact, telemetry was removed and tech was notified. Pt's discharge instructions, new medications and follow up appointments were reviewed. All questions were answered and pt voiced understanding. All belongings were gathered and transported with pt. Pt was escorted off unit by PIT FURNACE OPERATOR to the downsirs lobby for transport by his .
--- NOTE | 2016-10-09 13:07 | PCM.DC.MED ---
Discharge Summary Date of Service Oct 09, 2016 Dates of Hospitalization Date of Hospital Admission Oct 07, 2016 at 11:39 Date of Discharge: Oct 09, 2016 Providers: Admitting Physician: Vick Nolasco MD Primary Care Physician: Riley Cabral Attending Physician: Vick Nolasco MD Diagnosis at Time of Discharge Diagnosis at Time of Discharge 1. Unstable angina, resolved. 2. Diabetes mellitus 2. 3. Essential hypertension. 4. Tobacco dependence. Consultations Cardiology, Dr. Parker and Luis Procedures XRay, CTs & MRIs Chest x-ray is unremarkable ECG 12 Lead Normal sinus rhythm with no acute ST segment changes. Inferior Q waves are noted. Invasive Procedures PROCEDURES PERFORMED: 1. Intravascular ultrasound of the right coronary artery. 2. Percutaneous intervention with stent placement of the right coronary artery. 3. Limited left-sided angiography. INDICATIONS: A 40-year-old man admitted with chest pain, now with findings consistent with non-STEMI. He has an occluded and collateralized left anterior descending artery, but one of the vessels that are occluding this vessel is the right coronary artery which has evidence of serial high-grade stenoses. The patient presents for assessment and intervention. DESCRIPTION OF PROCEDURE: Informed consent was obtained. Patient was brought to the catheterization laboratory. Bilateral groins were prepped. However, the area of the right renal artery was prepped and draped in sterile fashion. The area over the right renal artery was anesthetized with lidocaine. Using an Angiocath double wall technique, access was obtained. A 6-Greek sheath was advanced. A cocktail of verapamil and nitroglycerin was administered prior to passing catheters. Next, a 6-Greek JR4 catheter was advanced over a wire and used to cannulate left coronary. Angiographic views obtained. This was exchanged out over exchange wire for a 6-Greek JR4 guide which was advanced into the right coronary. Heparin was given for anticoagulation. A [id number] wire was advanced across the area of stenosis into the PDA. A 2.5 x 12 mm balloon was advanced to the area of distal stenosis and inflated to nominal pressures. IVUS was then advanced to the vessel. The distal vessel appeared in the range of approximately 3.2 to 3.3 mm. As the vessel continued proximally, it got closer to 3.5. In the more proximal vessel where another stenosis was appreciated, it was about 4 mm in diameter. Next, a 3.25 mm balloon was advanced to the area of distal stenosis and inflated to nominal pressures. This appeared to be a reasonable size for the vessel. Initially, it would appear that the vessel could be 18 mm. However, there was significant motion of the stent with respiration, often jumping proximal to the area of stenosis. Therefore, we had to use a longer stent, so a 3.25 x 28 mm Xience stent was advanced to the area of stenosis. This was prepped and draped and carefully positioned and inflated to nominal pressures. Subsequent to this, a 3.5 noncompliant balloon was advanced to the area of stenting and inflated to nominal pressures for post dilation. Next, attention was focused on the proximal stenosis. There was significant spasm appreciated. Therefore, nitroglycerin was given to better visualize the size of the vessel. A 3.5 x 12 mm balloon was advanced to the area of stenosis and inflated to nominal pressures. This was clearly too small. Ultimately, decisions were made for a placement of a 4 mm stent. Thus, a 4 x 28 mm stent was advanced to the area of stenosis. Carefully, we placed and ultimately deployed at nominal pressures. After removal of the guide of the delivery balloon, a 4 x 15 mm noncompliant balloon was advanced in the area of initial stenosis, and this was inflated to high atmospheres. Followup angiographic views after stenting and intracoronary nitroglycerin revealed an excellent angiographic result with no significant residual stenosis, no evidence of dissection, and brisk flow in the artery. The extension branch is occluded but is collateralized via left to right collaterals. He has ostial disease and, therefore, was not felt to be a good candidate for intervention at this time. After wires and guides were removed, the 6-Greek JL4 catheter was advanced to the left coronary artery. Limited angiographic views were obtained to visualize the left anterior descending artery in anticipation of possible intervention in the near future. This catheter was removed and the case was ended. The TR band was placed and hemostasis was achieved. There were no complications. FINDINGS: Right coronary artery: This vessel has evidence of serial stenoses. The first stenosis appears in the range of 75%. The distal stenosis is higher grade in the estimated range of 99%. There is KHRIS 2 flow distally. There is evidence of clwre-wr-eoli collateralization appreciated. As noted, the vessel was wired. It was pre-dilated and was assessed with IVUS. Ultimately, a 3.25 x 28 mm Xience stent was advanced in the mid conduit stenosis. This was post dilated with a 3.5 noncompliant balloon. Ultimately, a 4 x 28 mm Xience stent was placed to cover the proximal stenosis. This was post dilated with a 4 NC balloon. IVUS was also used to assess the vessel for sizing and degree of calcification, if present. An excellent angiographic result was obtained. Left main: This is a rather short vessel with noted obstructive disease. Circumflex artery: This vessel has evidence of a stenosis estimated in the range of 50% to 60% in the mid segment. There are some other small obtuse marginal branches appreciated. Left anterior descending artery: This is occluded in the early part of the mid segment. There appears to be a favorable nipple seen which would make this a reasonable target to consider for percutaneous intervention in the next week. HEMODYNAMICS: Aortic pressure in the range of 130 to 160. Heart rates in the 60s to 70s. MEDICATIONS GIVEN IN THE CASE: Include anesthesia, heparin to achieve therapeutic ACTs. Patient had already been given Plavix this morning. He was given a ReoPro bolus at the end of the case. IMPRESSION: 1. Evidence for serial high-grade stenoses of the right coronary artery treated with balloon dilation, assessed with intravascular ultrasound, and placement of drug-eluting stents. 2. Evidence for collaterals, right to left collaterals filling the distal left anterior descending, as well as hewl-[id number] collaterals filling the distal left anterior descending. The left anterior descending artery is occluded in the early part of the mid segment. Prisca Smith MD 10/08/16 1143 Report status: Draft Transcribed by: MARCIO 10/08/16 1218 REPORT#: [id number] Brief History This is a 40-year-old male with a history of hypertension and diabetes mellitus 2. He has had 2 months of stuttering chest pain. This is been increasing recently. This is described as a left chest ache with associated diaphoresis and shortness of breath. He has also had some sweatiness. The pain is intermittently radiated to left arm. He was seen and no patient cardiology 2 days ago and given nitroglycerin which she used yesterday and this did help the pain to schedule for a stress test today and announced he was having chest pain before was sent to the ER. There is a negative troponin and nonacute 12-lead and was taken to the catheterization lab and found to have multiple critical stenoses in his coronary arteries. The patient is now on heparin after being brought up to the floor and was planned to have a PCI tomorrow. He denies recent cough. No rhinorrhea. His pain is again left chest radiating to left arm intermittently. It is increased by getting angry or exertion. In decreases with rest or nitroglycerin. Hospital Course 1. Unstable angina, POA. Patient is doing well status post PCI of the RCA with daily as placed. We will continue dual antiplatelet therapy, beta- blockade and high-dose atorvastatin. He will be observed for another 24 hours. He also has an LAD stenosis with collateralization which will be intervened on at a later date. The patient is admitted for crescendo angina and unstable angina. He was heparinized. His date for angioedema revealing 2 lesions in the RCA and an LAD lesion. The RCA was stented successfully. The patient did well. He had a right radial artery approach. The plan from cardiology was to discharge home if clinically stable and reapproach the LAD at a later date was 1 week to 10 days. The patient did well without any other complications and had no chest pain or dyspnea after his procedure. 2. Diabetes mellitus 2, POA stable and controlled. We will hold metformin and continue use of correctional lispro and at bedtime glargine, 5. This remained stable throughout hospitalization. 3. Essential hypertension, POA. Metoprolol 50 twice a day. This remained stable throughout hospitalization. 4. Tobacco dependence, POA stable and controlled. NicoDerm 21 mg transdermal. This remained stable throughout hospitalization. Patient is full resuscitation He is admitted inpatient status with estimated date of tonight's. Exam Vital Signs (Last) Date Time Temp Pulse Resp B/P Pulse Ox O2 Delivery O2 Flow Rate FiO2 10/09/16 09:17 78 10/09/16 08:09 36.5 16 125/77 97 Room Air Exam Patient was seen and examined on the day of discharge Test 10/07/16 09:13 10/07/16 18:55 10/07/16 23:10 10/08/16 02:10 Prothrombin Time 10.0sec (8.1-12.5) Prothromb Time International Ratio 0.94ratio Total Bilirubin 0.3mg/dL (0.0-1.2) Aspartate Amino Transf (AST/SGOT) 34U/L (0-50) Alanine Aminotransferase (ALT/SGPT) 58U/L (0-44) Alkaline Phosphatase 58U/L (25-150) Total Protein 7.9g/dL (6.4-8.4) Albumin 3.9g/dL (3.4-5.0) Hemoglobin A1c 8.3% (4.8-5.6) Magnesium Level 1.6mg/dL (1.6-2.6) Thyroid Stimulating Hormone (TSH) 0.752uIU/mL (0.450-4.500) Total Creatine Kinase 186U/L (21-232) Creatine Kinase MB 7.3ng/mL (0.0-10.4) Creatine Kinase MB % 3.9% (0.0-5.0) Troponin T 0.258ug/L (0.0-0.011) Neutrophils (%) (Auto) 48.8% (40-74) Lymphocytes (%) (Auto) 40.5% (14-46) Monocytes (%) (Auto) 7.6% (4-12) Eosinophils (%) (Auto) 2.5% (0-5) Basophils (%) (Auto) 0.5% (0-3) Activated Partial Thromboplast Time 32.0sec (22.8-33.0) Triglycerides Level 368.4mg/dL (0-149) Cholesterol Level 114mg/dL (100-199) LDL Cholesterol, Calculated 3.120mg/dL (0-99) VLDL Cholesterol 73.680mg/dL HDL Cholesterol 37.2mg/dL (>39) Cholesterol/HDL Ratio 3.06 (0.0-4.4) Test 10/09/16 03:15 White Blood Count 8.6th/mm3 (3.8-10.1) Red Blood Count 5.31mil/mm3 (4.40-5.80) Hemoglobin 14.8g/dL (13.8-17.2) Hematocrit 44.7% (41.0-50.0) Mean Corpuscular Volume 84.2fL (81-100) Mean Corpuscular Hemoglobin 27.9pg (27.0-35.0) Mean Corpuscular Hemoglobin Concent 33.1% (32.0-37.0) Red Cell Distribution Width 14.3% (12.3-15.4) Platelet Count 129bil/L (150-400) Sodium Level 135mEq/L (134-144) Potassium Level 5.2mEq/L (3.5-5.2) Chloride Level 99mEq/L (97-108) Carbon Dioxide Level 21mmol/L (18-29) Blood Urea Nitrogen 17mg/dL (6-20) Creatinine 0.86mg/dL (0.76-1.27) Estimat Glomerular Filtration Rate 106mL/min (>59) Glucose Level 159mg/dL (60-99) Calcium Level 9.2mg/dL (8.5-10.1) Discharge Medications Discharge Medications Allopurinol (Allopurinol) 300 Mg Tablet 300 MG PO DAILY (Reported) Aspirin (Aspirin) 81 Mg Tablet 81 MG PO DAILY Prescribed by: ED NAVA MD Atorvastatin Calcium (Atorvastatin Calcium) 20 Mg Tablet 20 MG PO DAILY ( Reported) Clopidogrel (Clopidogrel) 75 Mg Tablet 75 MG PO DAILY Prescribed by: VICK NOLASCO MD Fenofibrate Nanocrystallized (Fenofibrate) 48 Mg Tablet 48 MG PO DAILY Prescribed by: ED NAVA MD Glimepiride (Glimepiride) 1 Mg Tablet 1 MG PO DAILYAC (Reported) Indomethacin (Indomethacin) 50 Mg Capsule 50 MG PO TID (Reported) Metformin ER (Metformin ER) 1,000 Mg Tablet 1,000 MG PO DAILY (Reported) Metoprolol Succinate ER (Metoprolol Succinate ER) 25 Mg Tab.er.24h 25 MG PO DAILY (Reported) Miscellaneous Medications Colchicine (Colchicine) 0.6 Mg Capsule 0.6 MG PO (Reported) Probenecid (Probenecid) 500 Mg Tablet 500 MG PO (Reported) Followup Plan Disposition: Home Discharge Diet: Heart Healthy, Diabetic Discharge Activity: Limited until seen by PCP Follow-up Provider: Prisca Smith MD Follow-up with PCP in: 1 week Time spent 45 minutes Vick Nolasco MD Oct 09, 2016 13:07
== END 2016-10-09 11:14 | disposition home or self-care (01) | DRG 247 ==
LOC: SED 08:50 → OBSVTOIN 11:39 → PCC 11:39
PROVIDERS: ADMIT Hospitalist; ATTEND Hospitalist
PROC: 4A023N7 Measurement of Cardiac Sampling and Pressure, Left Heart, Percutaneous Approach (ICD-10-PCS; 2016-10-07)
PROC: B2111ZZ Fluoroscopy of Multiple Coronary Arteries using Low Osmolar Contrast (ICD-10-PCS; 2016-10-07)
PROC: B2151ZZ Fluoroscopy of Left Heart using Low Osmolar Contrast (ICD-10-PCS; 2016-10-07)
PROC: 027035Z Dilation of Coronary Artery, One Artery with Two Drug-eluting Intraluminal Devices, Percutaneous Approach (ICD-10-PCS; principal; 2016-10-08)
PROC: B240ZZ3 Ultrasonography of Single Coronary Artery, Intravascular (ICD-10-PCS; 2016-10-08)
PROC: B2101ZZ Fluoroscopy of Single Coronary Artery using Low Osmolar Contrast (ICD-10-PCS; 2016-10-08)
DX: I21.4 Non-ST elevation (NSTEMI) myocardial infarction (principal); Z68.41 Body mass index [BMI] 40.0-44.9, adult; I10 Essential (primary) hypertension; F17.200 Nicotine dependence, unspecified, uncomplicated; E11.9 Type 2 diabetes mellitus without complications; Z79.84 Long term (current) use of oral hypoglycemic drugs; Z79.82 Long term (current) use of aspirin; R94.39 Abnormal result of other cardiovascular function study; E78.5 Hyperlipidemia, unspecified; E66.01 Morbid (severe) obesity due to excess calories; I25.110 Atherosclerotic heart disease of native coronary artery with unstable angina pectoris

== ENCOUNTER 2016-11-11 01:01 | Day surgery (SDC) | payer MEDICARE ==
[~2016-11-11] VITALS: Ht 177.8 cm; Wt 132.0 kg
[2016-11-11] VITALS (22 sets, daily range): BP systolic 110–153; BP diastolic 70–115; PULSE 82–98; RESP 14–23; O2SAT 91–98
[~2016-11-11 01:01] MED LIST changes: -ASPI-973 PO; +ASPI325T32 PO; +CLOP75TA28 PO; -HYDR-3740 PO; +NITR0.4T SL; -OMEP20CA11 PO
[2016-11-11] MEDS ORDERED: 0.9% Sodium Chloride 1,000 ML IV ONE (06:08)
[2016-11-11] MEDS ORDERED: diphenhydrAMINE 25 mg Capsule PO ONE (06:10)
[2016-11-11] MEDS ORDERED: ASPI-973 PO (06:37)
[2016-11-11] MEDS ORDERED: Heparin 1,000 Units/500 mL NS Premix IV ONE ×3 (07:34→11:42)
[2016-11-11] MEDS ORDERED: Heparin 10,000 Unit/1,000 mL NS Premix IV ONE ×2 (07:34→08:03)
[2016-11-11] MEDS ORDERED: Verapamil 2.5 mg/mL 2 mL Inj ONE (07:40)
[2016-11-11] MEDS ORDERED: Nitroglycerin 50,000 mcg/250 mL D5W Premix IV ONE ×2 (07:40→12:47)
[2016-11-11] MEDS ORDERED: Heparin 1,000 Unit/mL 10 mL Inj ONE ×2 (07:40→08:21)
[2016-11-11] MEDS ORDERED: Phenylephrine/NS-PF 100 mCg/mL 5 mL Syringe IVPUSH ONE (07:40)
[2016-11-11] MEDS ORDERED: Atropine 1 mg/10 mL (Code) Syringe ONE (07:40)
[2016-11-11] MEDS ORDERED: fentaNYL-PF 50 mCg/mL 2 mL Inj ONE ×3 (07:58→10:22)
[2016-11-11] MEDS ORDERED: Lidocaine 1%/Epi 1:100,000 30 mL MDV ONE (12:14)
[2016-11-11] MEDS ORDERED: Lidocaine 1%-Epi 1:100,000 20 mL Inj ONE (12:15)
[2016-11-11] MEDS ORDERED: Alum-Mag Hydrox-Simeth 30 mL Suspension ONE (12:19)
[2016-11-11] MEDS ORDERED: Alum-Mag Hydrox-Simeth 30 mL Suspension PO ONE (12:30)
--- NOTE | 2016-11-11 13:16 | NUR ---
Arrival to [facility] Pt arrived to [facility], ambulatory w/ crutches, at 0600. IVs started X2. Labs from 11/09/16 obtained from [place]. Consent signed. BG 194; notified but no insulin ordered. Pt taken to cardiac cath lab radiology technologist at 0750.
--- NOTE | 2016-11-11 13:18 | NUR ---
Post heart cath Pt returned to [facility] at 1155. Left sheath in place (to be pulled at 1330), and right groin site initially w/ mild ooze. At 1210, right groin site with moderate oozing; no hematoma noted. Manual pressure held and Dr. Smith in at 1220 to inject Lido/Epi. No further oozing. Pt c/o severe heartburn upon return. New order for Maalox, which was given in reverse Trendelenburg; effective.. BG at 1200: 133. NS infusing and nitro gtt started at 5mcg/min per orders. Care ongoing.
[2016-11-11] MEDS ORDERED: Nitroglycerin 50 mg/250 mL D5W Premix IV SCH (13:30)
--- NOTE | 2016-11-11 14:00 | NUR ---
Left sheath pulled Left groin sheath pulled by meteorological technician at 1440. Manual pressure held for 20 minutes. No signs/sx of bleeding noted.
--- NOTE | 2016-11-11 16:26 | NUR ---
Transfer to 2008 Report called to Adali Redmond RN and patient taken to room 2008 around 1615 in stable condition, with belongings. Pt to remain on bedrest until 1800.
[2016-11-11] MEDS ORDERED: 0.9% Sodium Chloride 250 ML IV PRN (17:59)
[2016-11-11] MEDS ORDERED: 0.9% Sodium Chloride 1,000 ML IV PRN (17:59)
[2016-11-11] MEDS ORDERED: Atropine 1 mg/10 mL (Code) Syringe IVPUSH PRN (18:00)
[2016-11-11] MEDS ORDERED: Ondansetron 2 mg/mL 2 mL Inj IVPUSH PRN (18:00)
[2016-11-11] MEDS ORDERED: HYDROcodone-APAP 5-325 mg Tablet PO PRN (18:00)
--- NOTE | 2016-11-11 19:20 | CS94 ---
[address] [address] DIAGNOSTIC CARDIAC CATHETERIZATION PATIENT: DOUGLAS HEBERT : 1975 MR#: [id number] ADMIT: 11/11/2016 JOB ID: [id number] SERVICE DATE: 11/11/2016 PROCEDURES PERFORMED: 1. Coronary angiography. 2. Percutaneous intervention of the occluded principal diagonal vessel. INDICATIONS: A 41-year-old man with coronary disease and anginal symptoms. Has a known occluded and collateralized left anterior descending artery. DESCRIPTION OF PROCEDURE: Informed consent was obtained. Patient brought to the cath laboratory. Bilateral groins were prepped and draped in sterile fashion. The area over the right femoral artery was anesthetized with lidocaine. Using modified Seldinger technique and a micropuncture kit, access was obtained and a 6-Malaysian sheath was advanced. Next, the area over the left femoral artery was anesthetized with lidocaine. Using a micropuncture kit and modified Seldinger technique, access was obtained and a 5-Malaysian sheath was advanced. Next, a 6-Malaysian JL 3.5 guide was advanced over a wire and used to cannulate the left coronary artery and angiographic views obtained. In addition, a 5-Malaysian JR4 catheter was advanced to the left side and used to cannulate the right coronary artery and angiographic views were obtained as well as simultaneous views to evaluate the collaterals to the left anterior descending artery. After this was performed, attention was focused on opening the chronic total occlusion. A 6-Malaysian JL 3.5 guide was used. Heparin was used for anticoagulation. Initially, a Prowater wire was advanced across the initial part of the stenosis but this would not advance into the distal vessel. This was all advanced through a Corsair catheter. Next, a Whisper Wire was used, but again this would not cross. Also a Cutter Gas 50 would not cross. Ultimately, a Yue 2 wire was used and this was successful in crossing the occlusion. This went into the diagonal vessel. It was very difficult to visualize where the left anterior descending artery origin was, even with dual views from the right coronary artery and the left coronary. Ultimately, plans are made for dilation of the proximal vessel into the area of occlusion to see if the ostium of the left anterior descending artery could be better visualized. Initially, 2 mm balloons were advanced and the areas of stenosis inflated to nominal pressures. Ultimately, a 2.5 mm balloon was advanced and inflated to nominal pressures. After balloon angioplasty, there was good flow into the diagonal. However, again the origin of the left anterior descending artery was not easily identified. Dual imaging with a right coronary artery imaging to visualize left anterior descending was obtained, and even with this, it was still difficult to deliver a wire into the left anterior descending artery. Review of the images suggests that the left anterior descending has a very high-grade stenosis early in its proximal segment, and a tortuous takeoff, making cannulation quite difficult. As the patient was becoming uncomfortable, lying on the table, the patient was stable, and given the difficulty cannulating the left anterior descending artery, the case was left with a balloon angioplasty across the area of stenosis into the principal diagonal. The patient tolerated the procedure well. Catheters were removed and wires were removed. Hemostasis was achieved in the right femoral artery via deployment of a StarClose device. Plans are made for removal of the left femoral sheath by manual compression. No complications. FINDINGS: 1. Coronaries: a. Left anterior descending artery. This is occluded in its proximal segment. There is reconstitution of the left anterior descending artery and principal diagonal via collaterals As noted, wires were ultimately passed. Imaging was obtained with both left imaging as well as imaging of the right coronary artery to visualize collaterals. Ultimately, a wire was passed across the area of stenosis in the principle diagonal. However , this did not pass into the left anterior descending artery itself but actually passed into the principal diagonal. It was very difficult to visualize the continuation of the left anterior descending artery in the proximal segment. Therefore balloon dilation was performed of the diagonal to see if this would actually open up flow into the left anterior descending artery to better direct the wire. Unfortunately, it still remained very difficult to isolate how to pass into the left anterior descending artery, after balloon dilation in the diagonal. However, better flow was seen left anterior descending artery, though it does appear that in the segment that could not be well cannulated that there is an area of tortuosity as well as a high-grade stenosis. Followup angiographic views revealed reasonable result in the diagonal vessel with residual stenosis estimated in the range of 50% with good flow under the artery. 2. Circumflex artery: - 40-50% stenosis 2. Right coronary artery. This vessel has previously placed stents which appear widely patent. There is good flow in the vessel. HEMODYNAMICS DURING THE CASE: Please see landscape laborer record. MEDICATIONS DURING THE CASE: Include anticoagulation with heparin to achieve a therapeutic ACT. Conscious sedation per landscape laborer report. Patient was also given additional loading dose of Plavix at the end of the case. IMPRESSION: 1. Successful complex intervention with crossing an occlusion with balloon dilation of the principal diagonal. Unfortunately, wires could not be advanced into the tortuous segment of left anterior descending to open the left anterior descending artery. However, at the end of the case, there are persistent good [id number] collaterals filling the distal LAD bed 2. Right coronary artery has widely patent stents with good flow. 3. Circumflex artery has no obstructive disease. MTDD
[2016-11-12 03:42] VITALS: BP 116/73; PULSE 81; RESP 21; O2SAT 97
[2016-11-12 06:16] VITALS: PULSE 93
--- NOTE | 2016-11-12 07:50 | NUR ---
Restful Night Pt denied any chest pain over night, nitro gtt continues at 5mcg/min, monitored on MP30. Bilateral groin sites w/out s/sx of hematoma. Pedal pulses 2+ palpable. tele SR 60s-70s. Pt appeared to sleep comfortably overnight w/out complaints.
[2016-11-12 08:00] VITALS: PULSE 71
[2016-11-12 08:45] VITALS: BP 115/72; PULSE 79; RESP 17; O2SAT 97
--- NOTE | 2016-11-12 12:43 | NUR ---
Discharge Pt left with family at 1245. A&Ox3, vitals stable, and bilateral groin sites soft and non tender. All discharge instructions gone over and understood, medications gone over and no changes were made. All questions answered. Post heart cath information and instructions understood. Follow up apt made prior to discharge. IVx2 and tele removed.
--- NOTE | 2016-11-12 21:03 | DIS ---
[address] [address] DISCHARGE SUMMARY PATIENT: DOUGLAS HEBERT : 1975 MR#: [id number] ADMIT: 11/11/2016 JOB ID: [id number] DIS: 11/12/2016 ADMISSION DIAGNOSIS: Angina. PROCEDURES: 1. Coronary angiography 2. 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 At the end of the procedure, there were still very good right to left collaterals filling the distal LAD bed. After the procedure, he had some EKG changes in the high lateral leads related to where the intevention was performed. He had no chest pain or chest pressure. He was placed on nitroglycerin assuming this was related to spasm (in the area of angioplasty). On the day of discharge, the patient had no chest pain or chest pressure. He had no arrhythmias overnight. He was able to walk in the halls without symptoms. He was discharged on his current medications. I again expressed the importance of taking Plavix and aspirin every day because of the drug eluting stents in his right coronary artery. MEGAN
== END 2016-11-12 12:45 | disposition home or self-care (01) ==
LOC: SOUO 01:01 → PCC 16:14 → SOUO 11-12 12:45
PROVIDERS: ATTEND Internal Medicine
DX: I25.10 Atherosclerotic heart disease of native coronary artery without angina pectoris (principal); I25.82 Chronic total occlusion of coronary artery; E78.2 Mixed hyperlipidemia; I10 Essential (primary) hypertension; I25.2 Old myocardial infarction; E11.9 Type 2 diabetes mellitus without complications; G47.33 Obstructive sleep apnea (adult) (pediatric); Z95.5 Presence of coronary angioplasty implant and graft; Z79.82 Long term (current) use of aspirin; Z79.02 Long term (current) use of antithrombotics/antiplatelets
CPT/HCPCS: 36415; 80048; 93005; 99152; 99153; C1725; C1760; C1769; C1887; C9607; J1200; J1644; J2060; J2250; J3010; J7030; Q9967